=== PATIENT | male | born 1990 | race Caucasian/White ===

== ENCOUNTER 2024-02-06 10:04 | Emergency (ER) | payer BC, OTHER ==
[~2024-02-06] VITALS: Ht 175.3 cm; Wt 66.7 kg
[2024-02-06 10:18] VITALS: BP_SYST 121; PULSE 82; RESP 18; TEMP 96.8; O2SAT 99
[2024-02-06] MEDS ORDERED: IBUP-1969 PO (10:57)
[2024-02-06] MEDS ORDERED: SER100 PO (10:57)
[2024-02-06 11:15] VITALS: BP_SYST 121; PULSE 82; RESP 18; TEMP 96.8; O2SAT 99
== END 2024-02-06 11:15 | disposition home or self-care (01) ==
LOC: SED 10:04
DX: M79.18 Myalgia, other site (principal); Z79.899 Other long term (current) drug therapy
CPT/HCPCS: 99283